=== PATIENT | female | born 1950 | race Caucasian/White ===

== ENCOUNTER 2018-01-31 15:37 | Emergency (ER) | payer MEDICARE, OTHER ==
[~2018-01-31] VITALS: Ht 167.6 cm; Wt 118.2 kg
[2018-01-31 16:33] VITALS: BP 210/93; PULSE 83; RESP 18; TEMP 97.7; O2SAT 98
--- NOTE | 2018-01-31 20:17 | RADRPT ---
EXAM DATE/TIME: 01/31/2018 19:29 [place] COMPARISON: No previous studies available for comparison. INDICATIONS : Right leg pain. MEDICAL HISTORY : None. SURGICAL HISTORY : None. ENCOUNTER: Initial ACUITY: 1 week PAIN SCORE: 3/10 LOCATION: Right leg. TECHNIQUE: Venous ultrasound of the leg was performed from the inguinal ligament to the proximal calf. Real-cayla e, color Doppler and spectral tracing, compression and augmentation techniques were used. FINDINGS: There is normal compressibility of the deep venous system from the inguinal region to the proximal ca lf. No echogenic clot is seen in the lumen of the common femoral, femoral, popliteal, and posterior tibial veins. There is a normal response of the venous system to proximal and distal augmentation an d respiration. CONCLUSION: Normal examination. Esteban Walter MD on January 31, 2018 at 20:15 Board Certified Radiologist. This report was verified electronically.
--- NOTE | 2018-01-31 20:24 | PD ---
HPI Chief Complaint: Musculoskeletal Complaint Time Seen by Provider: 20:21 Travel History International Travel<30 days: No Contact w/Intl Traveler<30days: No Traveled to known affect area: No History of Present Illness HPI 67-year-old female presents emergency department for evaluation right lower extremity pain and swelling. Pain is a constant ache. It is alleviated by soaking it in a hot tub. Patient states she noticed after driving to [place] from [place] on January 21 that her right lower extremity had pain in the posterior calf. She states it was swollen then but that has seemed to resolve. She states the pain is never quite gone away. Denies any injury. No chest pain or shortness of breath. No history of DVT. She tells me she has no medical history. PFS Past Medical History Medical History: Denies Significant Hx Social History Tobacco Use: No Allergies-Medications (Allergen,Severity, Reaction): Coded Allergies: codeine (Verified Allergy, Severe, 01/31/18) Reported Meds & Prescriptions Reported Meds & Active Scripts Active No Active Prescriptions or Reported Medications Review of Systems Except as stated in HPI: all other systems reviewed are Neg Physical Exam Narrative GENERAL: Well-nourished, well-developed female patient, ambulatory with a nonantalgic gait, no acute distress. SKIN: Focused skin assessment warm/dry. HEAD: Normocephalic. EYES: No scleral icterus. No injection or drainage. NECK: Supple, trachea midline. No JVD or lymphadenopathy. CARDIOVASCULAR: Regular rate and rhythm without murmurs, gallops, or rubs. RESPIRATORY: Breath sounds equal bilaterally. No accessory muscle use. GASTROINTESTINAL: Abdomen soft, non-tender, nondistended. MUSCULOSKELETAL: No cyanosis, or edema. Distal pulses are palpable. No erythema. Patient has full flexion-extension of the right ankle and knee. Sensation intact distal affected extremity. There is no significant edema or difference in size between the 2 lower extremities. BACK: Nontender without obvious deformity. No CVA tenderness. Data Data Last Documented VS Vital Signs Date Time Temp Pulse Resp B/P (MAP) Pulse Ox O2 Delivery O2 Flow Rate FiO2 01/31/18 16:33 97.7 83 18 210/93 (132) 98 Orders Orders Us Leg Venous Doppler (01/31/18 ) Ed Discharge Order (01/31/18 20:23) [facility] Medical Decision Making Medical Screen Exam Complete: Yes Emergency Medical Condition: Yes Medical Record Reviewed: Yes Differential Diagnosis Strain versus spasm versus DVT versus contusion Narrative Course 67-year-old female presents emergency department for evaluation right lower extremity pain. Patient appears without distress. Vital signs are stable. Ultrasound is negative for DVT. Results are discussed with the patient. She does not want any pain control at this time. She agrees to follow-up with primary care provider. She will be discharged at this time. Diagnosis Primary Impression: Right leg pain Referrals: Primary Care Physician Patient Instructions: General Instructions, Musculoskeletal Pain (ED) Additional Instructions: Elevate to reduce pain Warm soaks as you have been doing to help reduce pain Follow-up with her primary care provider Return immediately to the emergency department with any acute worsening symptoms Med/Other Pt SpecificInfo: No Meds Exist/No RX given Scripts No Active Prescriptions or Reported Meds Disposition: 01 DISCHARGE HOME Condition: Stable Nelly Coyle Jan 31, 2018 20:24
== END 2018-01-31 21:02 | disposition home or self-care (01) ==
LOC: NEPD 15:37
DX: M79.604 Pain in right leg (principal)
CPT/HCPCS: 93971